=== PATIENT | female | born 1995 | race Caucasian/White ===

== ENCOUNTER 2024-04-13 03:27 | Emergency (ER) | payer BC, SELFPAY ==
[2024-04-13] VITALS (7 sets, daily range): BP systolic 105–118; BP diastolic 76–89
[2024-04-13 04:25] LABS: % Basophils 0.4 % (0-2); % Eosinophils 2.8 % (0-6); % Immature Granulocytes 0.4 % (0-0.5); % Monocytes 8.7 % (1.7-9.3); % Neutrophils 50.7 % (42.2-75.2); Absolute Eosinophils 0.1 10^3/uL (0-0.7); Absolute Lymphocytes 1.9 10^3/uL (1.2-3.4); Absolute Monocytes 0.4 10^3/uL (0.1-0.6); Absolute Neutrophils 2.6 10^3/uL (1.4-6.5); Hematocrit 33.8 % (37.0-47.0); Mean Corp Hgb Conc. 35.5 g/dL (33.0-37.0); Mean Corpuscular Hgb 30.2 pg (27.0-31.0); Mean Corpuscular Volume 84.9 fL (81.0-99.0); Mean Platelet Volume 9.8 fL (7.4-10.4); Nucleated Red Blood Cells % 0 %; Platelet Count 244 10^3/uL (130-400); Red Blood Cell Count 3.98 10^6/uL (4.20-5.40); Red Cell Dist. Width 12.2 % (11.5-14.5); White Blood Cell Count 5.1 10^3/uL (4.8-10.8)
--- NOTE | 2024-04-13 04:28 | ED.GENMED ---
History of Present Illness
General
Chief Complaint: Vaginal Bleeding
Source: patient and spouse
Time Seen by Provider: 04/13/24 04:06
History of Present Illness
History of Present Illness:
28-year-old female who is undergoing fertility treatment who presents with vaginal bleeding. Patient had a positive bradycardia test that they are following for possible ectopic. She does state beta-hCG has been going up. They are planning on
following up this week for further labs. Tonight the patient states her bleeding hemoglobin were increased and has had twinges of pain in the right pelvis. No vomiting. No back pain. She was on Clomid. Patient has never before been
Past History
Past History
ED Past Medical History: None
Phy Exam
Physical Exam
Physical Exam:
CONSTITUTIONAL Patient alert and oriented to person, place and time. Well-appearing. Vital signs reviewed.
HEAD atraumatic, normocephalic.
EYES eyelids normal to inspection, Pupils equally round and reactive to light, Extraocular muscles intact, Conjunctiva normal, Sclera normal.
NECK normal range of motion, Trachea midline, no jugular venous distention.
RESPIRATORY CHEST No respiratory distress noted, Chest expansion equal, Bilateral breath sounds clear.
CARDIOVASCULAR regular rate and rhythm, Heart sounds normal.
ABDOMEN mild right pelvic tenderness, Bowel sounds normal. No distention.
UPPER EXTREMITY range of motion normal, Motor strength normal, no cyanosis, no edema.
LOWER EXTREMITY range of motion normal, Motor strength normal, no cyanosis, no edema.
NEURO Speech normal, No focal motor deficits, Azra coma scale 15, Memory normal, Cranial Nerves intact to screening exam.
SKIN skin warm, dry, and normal in color.
PSYCHIATRIC patient oriented to person place and time, Normal affect.
Course
Orders/Labs/Results
Orders:
Orders
04/13/24 04:17
Blood Group&Type Urgent
Basic Metabolic Panel Urgent
Beta HCG Quantitative Urgent
Is this a screen?: No
Complete Blood Count/With Diff Urgent
04/13/24 04:26
US Transvaginal Only Urgent
Reason For Exam: PVB.
04/13/24 05:57
Rhogam [* Blood Bank Products] Urgent
Blood Bank Products: Rhogam - Mini Dose
Quantity: 1
Transfuse Today: Yes
Reason: Bleeding
Rho (D) Immune Globulin [MICRhoGRAM ULTRA FILTERED PLUS] 50 mcg IM ONCE ONE
04/13/24 06:04
Add On- LAB Urgent
Tests Added?: antibody screen
Abnormal Lab Results
04/13/24
04:17
RBC 3.98 L 10^6/uL
(4.20-5.40)
Hct 33.8 L %
(37.0-47.0)
04/13/24 04:17
04/13/24 04:17
Vital Signs
Initial and Last Documented VS:
Initial Vital Signs
Temp Pulse Resp BP Pulse Ox
98.2 F 82 16 118/80 100
04/13/24 03:30 04/13/24 03:30 04/13/24 03:30 04/13/24 03:30 04/13/24 03:30
Last Documented Vital Signs
Temp Pulse Resp BP Pulse Ox
98.2 F 82 16 117/81 98
04/13/24 03:30 04/13/24 03:30 04/13/24 03:30 04/13/24 05:20 04/13/24 05:20
MDM/Problems Addressed
MDM/Problems Addressed:
vaginal bleeding, failed
*Radiology
Radiology exam reviewed: radiology read reviewed
*Pulse Oximetry
Patient hypoxic: no
*Critical Care Note
Total Time (30-74mins, 75-104mins- exclusive of procedures): Not Applicable
Data Reviewed
Source: patient and spouse
Prescriptions/Medications Considered But Not Given:
Consider methotrexate but beta is declining
Patient Management
Discussion with other providers: Company Doctor (Dr. Hernandez)
Escalation/DeEscalation of care consider admission/obs:
20-year-old female getting fertility treatment who presents with minor right pelvic pain and bleeding. Patient states the pain is just about gone and is only mild. She states she sort of where she is she just went back to sleep because she feels
pretty good. She is being followed by her fertility specialist. Her beta hCG was in the 400s and now in the 300s so suspect failed . Ectopic needs to continue to be ruled out but think it is unlikely. There are no pelvic masses noted.
Case was discussed with OB who agrees that she can continue outpatient management. She does agree with given her dose of RhoGAM.
ED Attending Note
-
Portions of this chart may have been created with voice recognition software.� Occasional wrong word or��sound alike� substitutions may have occurred due to the inherent limitations of voice recognition software.
Discharge Plan
Departure
Patient Disposition: Home (Routine Discharge)
Date of Disposition: 04/13/24
Time of Disposition: 06:17
Patient with high blood pressure during this ER visit?: No
Discharge Problem:
Vaginal bleeding in , Failed
Instructions: Miscarriage (DC)
Referrals:
Cassie Moise MD [Family Provider] -
Activity Restrictions/Additional Instructions:
Suspect failed . Continue to rule out ectopic
Please see your word processing supervisor in follow-up in the next 24 hours as planned. Please continue to follow your beta-hCG to make sure it returns to 0. Return immediately for worsening pain, vomiting, fevers or any other concerns. You were given a dose
of RhoGAM while here.
Interventions
Interventions:
*Risk Screen - Suicide Last Done: 04/13/24 03:30
*General Assessment Last Done: 04/13/24 04:21
*Neglect/Abuse Screening Last Done: 04/13/24 03:30
ED- Fall Risk Assessment Last Done: 04/13/24 03:30
*ED COVID-19 Vaccine History Last Done: 04/13/24 03:30
ED-Female Genitourinary Assessment Last Done: 04/13/24 04:21
Discharge Date and Time
Print Language: BENGALI
[2024-04-13 04:39] LABS: Blood Urea Nitrogen 16 mg/dl (7-17); Carbon Dioxide 27 mmol/L (22-30); Chloride 106 mmol/L (98-107); Glucose 81 mg/dl (70-99); Potassium 4.2 mmol/L (3.5-5.1); Sodium 138 mmol/L (135-145); eGFR > 60.00
[2024-04-13 05:04] LABS: Beta HCG Quantitative 338.09 mIU/ml
== END 2024-04-13 06:59 | disposition home or self-care (01) ==
LOC: EMR 03:27
PROVIDERS: EMERGENCY PHYSICIAN Emergency Medicine; FAMILY PHYSICIAN Family Medicine
DX: O26.851 Spotting complicating pregnancy, first trimester (principal); O26.891 Other specified pregnancy related conditions, first trimester; Z3A.01 Less than 8 weeks gestation of pregnancy
CPT/HCPCS: 99284; 96372; 76817; 80048; 84702; 85025; 86850; 86900; 86901; J2790

== ENCOUNTER → 2024-08-20 07:00 | Outpatient (REF) | payer BC, SELFPAY | LOC: PNTC 07:00 | PROVIDERS: ATTENDING PHYSICIAN Obstetrics & Gynecology | DX: Z36.0 Encounter for antenatal screening for chromosomal anomalies (principal); Z36.82 Encounter for antenatal screening for nuchal translucency | CPT/HCPCS: 76801; 76813 ==

== ENCOUNTER → 2024-10-14 16:14 | Outpatient (REF) | payer BC, SELFPAY | LOC: PNTC 16:14 | PROVIDERS: ATTENDING PHYSICIAN Student in an Organized Health Care Education/Training Program | DX: Z34.82 Encounter for supervision of other normal pregnancy, second trimester (principal) | CPT/HCPCS: 76805 ==

== ENCOUNTER → 2024-10-28 06:45 | Outpatient (REF) | payer BC, SELFPAY | LOC: PNTC 06:45 | PROVIDERS: ATTENDING PHYSICIAN Student in an Organized Health Care Education/Training Program | DX: Z36.3 Encounter for antenatal screening for malformations (principal) | CPT/HCPCS: 76815 ==

== ENCOUNTER → 2024-12-08 08:50 | Outpatient (REF) | payer BC, SELFPAY | LOC: PNTC 08:50 | PROVIDERS: ATTENDING PHYSICIAN Obstetrics & Gynecology | DX: Z29.13 Encounter for prophylactic Rho(D) immune globulin (principal); Z34.93 Encounter for supervision of normal pregnancy, unspecified, third trimester | CPT/HCPCS: 36415; 86850; 86900; 86901; 96372; J2790 ==